=== PATIENT | male | born 1980 | race Caucasian/White ===

== ENCOUNTER 2017-12-21 17:01 | Emergency (ER) | payer SELFPAY ==
[2017-12-21 17:02] VITALS: BP 124/92; PULSE 101; RESP 16; TEMP 37; O2SAT 100; BMI 26.9
--- NOTE | 2017-12-21 17:44 | ED.VISSUMM ---
- ER Visit Summary Date of Service: 12/21/17 Chief Complaint: [] Left foot plantar nail puncture wound yesterday clean nail History of Present Illness: The patient is a 37 M [] was basically building something a very clean nail he just used he stepped on it with the boot went through the boot into the foot he believes it may have actually tented the dorsal skin did not go through the dorsal skin he presents complaining of persistent pain, he has no past history history of diabetes or any medical problems on no chronic meds his chief complaint is the pain Physical Examination: [] Head neck chest unremarkable the left foot there is a puncture wound to the plantar surface, there is no redness warmth or signs of infection fluctuance it appears to be more mid second third metatarsal level again no fluctuance crepitus his foot function is normal skin is intact no signs of infection strong dorsalis pedis pulse no lymphangitic streaking ankle normal Test Results: [] Emergency Department Course and Treatment: [] X point in the concept of I&D and coring out the plantar puncture, to treat potential infection, he understood that, and he declined that he was started on oral Cipro [place] for pain x-ray of the foot, will update tetanus as needed X-ray per radiology shows nothing acute of explained again all the above the patient at this time he was started on antibiotics, close outpatient with orthopedics crutfelicity Molina for pain and return for change in symptoms Treatment Plan: [] Disposition: [] Home stable Impression: [] Plantar puncture wound left foot related to nail This note was generated with [employer] dictation software. It may contain incorrect words, spelling, and punctuation that were not noted in review of the chart prior to signing ED Disposition - Plan for ED Patient: Chief Complaint: Lower Extremity Injury Referrals: Care Physician,No Primary [Primary Care Provider] -
[2017-12-21] MEDS: Ciprofloxacin 250 MG Tablet 500 MG PO (18:08)
[2017-12-21] MEDS: HYDROcodone Bitartrate/Apap 5/325 Tablet PO (18:08)
--- NOTE | 2017-12-21 18:29 | ED.DEP ---
ED Disposition - Plan for ED Patient: Chief Complaint: Lower Extremity Injury Instructions: ED Wound Puncture Foot Prescriptions: Hydrocodone/Acetaminophen [[place] 5-325 Tablet] 1 - 2 ea PO 4X/DAY PRN PRN 3 Days #12 tab PRN Reason: Pain Ciprofloxacin [Cipro] 500 mg PO BID #20 tab Referrals: Care Physician,No Primary [Primary Care Provider] - Justus Rueda MD [STAFF PHYSICIAN] -
[2017-12-21 18:38] VITALS: BP 168/88; PULSE 72; RESP 18; O2SAT 95
== END 2017-12-21 18:38 | disposition home or self-care (01) ==
LOC: ED 18:25
PROVIDERS: Emergency Provider Emergency Medicine
DX: S91.332A Puncture wound without foreign body, left foot, initial encounter (principal); W45.0XXA Nail entering through skin, initial encounter; Y93.9 Activity, unspecified; Y92.9 Unspecified place or not applicable
CPT/HCPCS: 73630; 99284

== ENCOUNTER 2018-02-12 16:54 | Emergency (ER) | payer SELFPAY ==
[2018-02-12 16:55] VITALS: BP 148/97; PULSE 89; RESP 18; TEMP 36.5; O2SAT 97; BMI 26.1
--- NOTE | 2018-02-12 17:38 | ED.VISSUMM ---
- ER Visit Summary Date of Service: 02/12/18 Chief Complaint: Low back pain History of Present Illness: The patient is a 37 M only past medical history for kidney stones. No prior surgeries. No back history. Patient states he was playing with his 2 large dogs on Monday. He twisted and injured his lower back. Complaining of pain. No radiation to his legs. No bowel or bladder incontinence. No other trauma. No fever. He is on no blood thinners. He denies any abdominal pain. He denies any weakness or numbness to his lower extremities. Physical Examination: Well-appearing young male. Vital signs are stable afebrile. HEENT exam unremarkable. Neck nontender. Lungs clear to auscultation. Heart regular rhythm no murmur. Abdomen soft and nontender. Normal bowel sounds no peritoneal signs. Patient is moving all 4 extremities. They are all neurovascular intact. 5 out of 5 manager voice strength. 5 out of 5 dorsi plantar flexion. Normal sensation in both lower extremities. Negative cauda equina. Negative saddle anesthesia. Normal medial thigh sensation. Normal range of motion of both upper and lower extremities. Negative straight leg raise to both lower extremities. back tender fourdrinier on his. Lumbar soft tissues. The thoracic and cervical spines are nontender. No redness or warmth. No signs of trauma. Neurologic exam normal. Again no cauda equina or saddle anesthesia. No weakness or numbness to the lower extremities. Test Results: None Emergency Department Course and Treatment: History and exam are consistent with myofascial strain and paralumbar muscle spasm. Treatment Plan: I am Toradol p.o. Valium here. Prescription for Valium No. 10 no refill. Also Motrin for pain. Hot shower. Warm bath. Massage. Return if worse. Disposition: Discharge Impression: Acute lumbar strain with paralumbar muscle spasm This note was generated with [employer] dictation software. It may contain incorrect words, spelling, and punctuation that were not noted in review of the chart prior to signing ED Disposition - Plan for ED Patient: Chief Complaint: Back Referrals: Care Physician,No Primary [Primary Care Provider] -
--- NOTE | 2018-02-12 17:41 | ED.DCSUM_ITS ---
- ER Visit Summary Date of Service: 02/12/18 Chief Complaint: Low back pain History of Present Illness: The patient is a 37 M only past medical history for kidney stones. No prior surgeries. No back history. Patient states he was playing with his 2 large dogs on Monday. He twisted and injured his lower back. Complaining of pain. No radiation to his legs. No bowel or bladder incontinence. No other trauma. No fever. He is on no blood thinners. He denies any abdominal pain. He denies any weakness or numbness to his lower extremities. Physical Examination: Well-appearing young male. Vital signs are stable afebrile. HEENT exam unremarkable. Neck nontender. Lungs clear to auscultation. Heart regular rhythm no murmur. Abdomen soft and nontender. Normal bowel sounds no peritoneal signs. Patient is moving all 4 extremities. They are all neurovascular intact. 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 5 out of 5 dorsi plantar flexion. Normal sensation in both lower extremities. Negative cauda equina. Negative saddle anesthesia. Normal medial thigh sensation. Normal r galindo of motion of both upper and lower extremities. Negative straight leg raise to both lower extremities. cigar wrapper tender automatic on his. Lumbar soft tissues. The thoracic and cervical spines are nontender. No redness or warmth. No signs of trauma. Neurologic exam normal. Again no cauda equina or saddle anesthesia. No weakness or numbness to the lower extremities. Test Results: None Emergency Department Course and Treatment: History and exam are consistent with myofascial strain and paralumbar muscle spasm. Treatment Plan: I am Toradol p.o. Valium here. Prescription for Valium No. 10 no refill. Also Motrin for pain. Hot shower. Warm bath. Massage. Return if worse. Disposition: Discharge Impression: Acute lumbar strain with paralumbar muscle spasm This note was generated with [employer] dictation software. It may contain incorrect words, spelling, and punctuation that were not noted in review of the chart prior to signing ED Disposition - Plan for ED Patient: Chief Complaint: Back Referrals: Care Physician,No Primary [Primary Care Provider] -
--- NOTE | 2018-02-12 17:41 | ED.DEP ---
ED Disposition - Plan for ED Patient: Disposition: Home or Assisted Living Chief Complaint: Back Instructions: ED Sprain Strain Lumbar Prescriptions: Diazepam [Valium] 10 mg PO Q8H PRN PRN #10 tab PRN Reason: Muscle Spasm Referrals: Bunny Chavez MD [STAFF PHYSICIAN] - 1 Week if not improving Additional Instructions: Valium for muscle spasms. Motrin for pain. Hot shower, warm bath and massage to relax back muscles. Return if worse or follow-up with local primary care physician if not improving.
[2018-02-12] MEDS: diazePAM 5 MG Tablet 10 MG PO (18:03)
[2018-02-12] MEDS: Ketorolac 60 MG/2 ML Vial IM (18:03)
[2018-02-12 18:28] VITALS: RESP 18; O2SAT 98
== END 2018-02-12 18:29 | disposition home or self-care (01) ==
LOC: ED 17:47
PROVIDERS: Emergency Provider Emergency Medicine
DX: S39.012A Strain of muscle, fascia and tendon of lower back, initial encounter (principal); M62.830 Muscle spasm of back; X50.1XXA Overexertion from prolonged static or awkward postures, initial encounter; Y93.9 Activity, unspecified; Y92.9 Unspecified place or not applicable; Z87.442 Personal history of urinary calculi; Z72.0 Tobacco use
CPT/HCPCS: 96372; 99283

== ENCOUNTER 2018-02-14 16:11 | Emergency (ER) | payer SELFPAY ==
[2018-02-14 16:12] VITALS: BP 134/72; PULSE 91; RESP 18; TEMP 36.4; O2SAT 99; BMI 26.1
--- NOTE | 2018-02-14 17:00 | RAD_ITS ---
STUDY: X-RAY - LUMBAR SPINE REASON FOR EXAM: Male, 37 years old. Back pain after traumatic injury. TECHNIQUE: 3 view(s) of the lumbar spine were obtained. COMPARISON: None FINDINGS: Normal lumbar lordosis. There is no substantial scoliosis. There is a normal alignment of the vertebrae. Normal vertebral bodies and endplates. Normal disc space heights. There is no demonstrated fracture. There is no demonstrated spondylolysis of the pars interarticulares. The soft tissue structures are unremarkable. RAD/Lumbar Spine 2 or 3 Views IMPRESSION: Normal x-ray examination of the lumbar spine. Electronically Signed: Amie Gracia MD at 17:52 EDT , Service support ,
[2018-02-14] MEDS: Orphenadrine 60 MG/2 ML Ampul IM (17:20)
[2018-02-14] MEDS: Ketorolac 30 MG/ML Syringe IM (17:20)
--- NOTE | 2018-02-14 18:17 | ED.VISSUMM ---
- ER Visit Summary Date of Service: 02/14/18 Chief Complaint: Back pain History of Present Illness: The patient is a 37 M presenting for evaluation secondary to back pain. Patient reports that he suffered somewhat of a back injury about 5 days ago when he was rolling on the ground with his dogs. Patient states that it is a continuous pain across his bilateral lower back. Pain is worse with movement does not radiate and has not been associated with any sort of numbness weakness bowel or bladder incontinence or fevers. Patient denies any history of spinal injections or recent surgeries. Patient states that he was seen in the emergency department was given Toradol which seemed to help but then he was sent home with a course of Valium which is not helping him. Patient has a very physical job, and states that he has been unable to perform his tasks at work because he is still having pain. Physical Examination: Vitals: Within normal limits General: Well-nourished well-developed no acute distress Head: Normocephalic atraumatic ENT: Moist mucous membranes Neck: Supple no JVD Cardiovascular: Heart regular rate and rhythm no murmurs Respiratory: Respirations nondistressed, lung sounds clear to auscultation bilaterally Abdominal: Soft, nontender, nondistended, normal bowel sounds, no evidence of abdominal masses or pulsatile mass Back: Normal to inspection, no midline tenderness to palpation, bilateral paraspinal lumbar tenderness noted, straight leg raise negative bilaterally Extremities: Nontender, nonedematous, 2+ radial and PT pulses bilaterally symmetric Skin: Normal color no rash Neuro: 5/5 strength hip flexion, knee flexion, knee extension, dorsiflexion, plantarflexion, EHL. Sensation intact over all dermatomes of the lower extremities bilaterally, 2+ patellar and Achilles reflexes bilaterally symmetric, negative clonus bilaterally Test Results: Lumbar x-ray is negative per radiology Emergency Department Course and Treatment: Patient presented for evaluation secondary to back pain. Physical exam seems like this is mostly muscular back pain, but the patient is a bounce backs radiographs were obtained and were found to be negative. He has no red flag signs or symptoms and no concerns for cauda equina or spinal cord impingement or dural abscess or hematoma or other serious etiology that would require further workup. Patient was treated with Toradol and Norflex. At this point I still believe the patient to have a lumbar strain. He was recommended on aggressive stretching exercises. I will give the patient a Medrol pack, I will change his muscle relaxant to Flexeril, will give the patient a couple days off work and have him follow-up with his primary care physician. Disposition: Discharge Impression: 1. Lumbosacral strain This note was generated with [employer] dictation software. It may contain incorrect words, spelling, and punctuation that were not noted in review of the chart prior to signing ED Disposition - Plan for ED Patient: Disposition: Home or Assisted Living Chief Complaint: Back Diagnosis: Lumbosacral strain Instructions: ED Sprain Strain Lumbar Prescriptions: Cyclobenzaprine [Flexeril] 10 mg PO TID PRN #20 tab PRN Reason: Muscle Spasm Referrals: Care Physician,No Primary [Primary Care Provider] -
== END 2018-02-14 18:42 | disposition home or self-care (01) ==
PROVIDERS: Emergency Provider Emergency Medicine
DX: S39.012A Strain of muscle, fascia and tendon of lower back, initial encounter (principal); X58.XXXA Exposure to other specified factors, initial encounter; Y93.9 Activity, unspecified; Y92.9 Unspecified place or not applicable; Z72.0 Tobacco use
CPT/HCPCS: 72100; 96372; 99283

== ENCOUNTER 2018-06-27 09:43 | Emergency (ER) | payer SELFPAY ==
[2018-06-27 09:44] VITALS: BP 164/86; PULSE 81; RESP 18; TEMP 37.6; O2SAT 100; BMI 24.7
--- NOTE | 2018-06-27 09:53 | EKG12_ITS ---
Test Reason : DIZZINESS Blood Pressure : / mmHG Vent. Rate : 068 BPM Atrial Rate : 068 BPM P-R Int : 148 ms QRS Dur : 098 ms QT Int : 388 ms P-R-T Axes : 053 029 049 degrees QTc Int : 412 ms Normal sinus rhythm Normal ECG Confirmed by SHARYN FORREST MD ([id number]), general expeditor ELAINA VANG ([id number]) on 07/03/2018 8:51:49 AM Referred By: YANA Confirmed By:SHARYN FORREST MD
--- NOTE | 2018-06-27 09:55 | ED.VISSUMM ---
- ER Visit Summary Date of Service: 06/27/18 Chief Complaint: Dizzy, jittery History of Present Illness: The patient is a 38 M presents to the emergency department with lightheadedness and the sensation of palpitations. Patient states the symptoms began today. He was at work. He states that she had breakfast. He states that he felt very tremulous like his heart was racing. Patient has recently stopped smoking 2 days ago. He denies headache or vision change. He denies any fevers or chills. He denies any cough. He had no neck pain. He had no nausea or vomiting. He states I just did not feel like myself. He is never experienced anything like this before. Physical Examination: Vital signs reviewed General: Well-nourished, well-developed Head: Normocephalic, atraumatic Eyes: Pupils equal and reactive, extraocular muscles intact Neck, supple, no lymphadenopathy Heart: Regular rate and rhythm Respiratory: No distress, clear bilaterally Abdomen: Soft, nontender, nondistended, no peritoneal signs Back: Nontender Extremities: Nontender, no edema, no cords Skin: Normal color no rash Neuro: Alert and oriented, no focal or lateralizing deficits Test Results: [] Emergency Department Course and Treatment: The patient is not febrile tachycardic. EKG was done on patient arrival. Was sinus rhythm. There is no acute ischemic change. There is normal axis and intervals. Patient was given IV fluids and Ativan. Screening labs obtained. These are unremarkable. My suspicion is that this is likely from nicotine withdrawal. At this time, I do feel the patient is safe for outpatient therapy. He was counseled on concerning symptoms and reasons to return. He will be discharged home. Treatment Plan: [] Disposition: Discharge Impression: 1. Palpitations This note was generated with [employer] dictation software. It may contain incorrect words, spelling, and punctuation that were not noted in review of the chart prior to signing ED Disposition - Plan for ED Patient: Instructions: ED Dehydration Referrals: Care Physician,No Primary [Primary Care Provider] -
--- NOTE | 2018-06-27 09:57 | NURSING ---
NO OLD EKGS
[2018-06-27 10:09] LABS: Absolute Lymphocyte Count 2.02 X10^3/ul (0.83-4.51); Absolute Neutrophil Count 9.3 X10^3/uL (2.0-7.7); Basophil# 0.09 X10^3/uL; Basophil% 0.7 % (0-1); Eosinophil# 0.32 X10^3/uL; Eosinophils% 2.5 % (0-5); Hematocrit 48.6 % (40-54); Hemoglobin 16.4 g/dl (13.0-16.5); Lymphocyte # 2.02 X10^3/ul (4.0); Mean Corp Hgb Conc 33.7 g/gl (32-36); Mean Corpuscular Hgb 31.7 pg (27.0-32.0); Mean Corpuscular Volume 93.8 fL (80-94); Mean Platelet Vol. 11.5 fl (6.2-12.0); Monocyte# 0.89 X10^3/uL; Neutrophil # 9.31 X10^3/uL (2.7-7.7); Neutrophil % 73.6 % (47-70); Platelet Count 282 K/mm3 (150-450); RBC Distribution Width CV 12.4 % (11.6-14.6); RBC Distribution Width SD 42.2 fl (35.1-43.9); Red Blood Count 5.18 M/mm3 (4.6-6.2); White Blood Count 12.7 K/mm3 (4.4-11.0)
[2018-06-27 10:10] LABS: POSITIVE COUNT NO; POSITIVE DIFFERENTIAL NO; POSITIVE MORPHOLOGY NO
[2018-06-27 10:38] LABS: ALB/GLOB Ratio 1.2 RATIO (0.9-2.4); AST(SGOT) 19 U/L (15-37); Alanine Aminotransfer ALT/SGPT 29 U/L (16-61); Albumin, Serum 4.3 g/dL (3.2-5.0); Alkaline Phosphatase 82 U/L (45-117); Anion Gap 8 (5-15); BUN 11 mg/dL (7-18); BUN/Creat Ratio 10.5 RATIO (10-20); Calcium,Total 8.5 mg/dL (8.5-10.1); Chloride 105 mmol/L (98-107); Creatinine, Serum 1.05 mg/dL (0.70-1.30); EST Glomerular Filtration Rate 84 mL/min (>60); Est Glom Filt Rate - Afr Amer 101 mL/min (>60); Estimated Creatinine Clearance 94.45 ml/min; Globulin 3.5 g/dL (2.2-4.2); Glucose 93 mg/dL (74-106); Potassium 3.8 mmol/L (3.5-5.1); Protein, Total 7.8 g/dL (6.4-8.2); Sodium Level 139 mmol/L (136-145)
[2018-06-27] MEDS: 0.9% Normal Saline 1,000 ML 1000 ML IV (10:47)
[2018-06-27] MEDS: LORazepam 2 MG/ML Syringe 1 MG IV (10:47)
[2018-06-27 10:51] VITALS: BP 151/111; PULSE 70; RESP 18; O2SAT 99
[2018-06-27 12:13] VITALS: BP 128/60; PULSE 90; RESP 18; O2SAT 98
== END 2018-06-27 12:16 | disposition home or self-care (01) ==
PROVIDERS: Emergency Provider Emergency Medicine
DX: R00.2 Palpitations (principal); F17.203 Nicotine dependence unspecified, with withdrawal
CPT/HCPCS: 80053; 85025; 93005; 96361; 96374; 99284; J7030

== ENCOUNTER 2018-07-02 11:08 | Emergency (ER) | payer SELFPAY ==
[2018-07-02 11:10] VITALS: BP 137/89; PULSE 83; RESP 12; TEMP 36.8; BMI 23.6
--- NOTE | 2018-07-02 11:36 | RAD_ITS ---
STUDY: X-RAY - LUMBAR SPINE REASON FOR EXAM: Male, 38 years old. Pain following a recent fall. TECHNIQUE: 3 view(s) of the lumbar spine were obtained. COMPARISON: None FINDINGS: Normal lumbar lordosis. There is no substantial scoliosis. There is a normal alignment of the vertebrae. Normal vertebral bodies and endplates. Mild to moderate degree of disc space narrowing at the L5-S1 level. The soft tissue structures are unremarkable. RAD/Lumbar Spine 2 or 3 Views IMPRESSION: Mild to moderate degree of disc space narrowing at the L5-S1 level. Electronically Signed: Skyler López, at 12:38 EDT , Service support ,
--- NOTE | 2018-07-02 12:15 | ED.VISSUMM ---
- ER Visit Summary Date of Service: 07/02/18 Chief Complaint: [Back injury] History of Present Illness: The patient is a 38 M [presents to the emergency department complaint of injury to his back that occurred 2 days ago. Patient states that he was cutting up trees and he slipped in the mud landing on a log that he had cut. Patient complaining of pain with movement and bending. Patient rates pain as a 7 out of 10. He denies any pain rating down his legs. He denies any change in bowel or bladder function. Denies any paresthesias to the lower extremities. He denies any hematuria. He denies any urinary symptoms. Denies any dyspnea.] Physical Examination: [HEENT-PERRLA, EOMI. Cranial nerves II through XII grossly intact. TMs clear. Mucous membranes moist. No adenopathy. Cardiovascular-regular rate and rhythm without murmur or ectopy Lungs-clear to auscultation, chest wall stable without crepitus or subcu emphysema Abdomen-normoactive bowel sounds, soft, nontender, no rebound or rigidity, no peritoneal signs. Back exam-patient has tenderness to palpation over the mid lumbar spine reproduces pain. There is no ecchymosis or bruising noted no bony step-offs noted. Negative straight leg raises. Deep tendon reflexes are plus 2 out of 4 bilaterally at the patella and Achilles. Patient has normal L5 extension. Extremities-intact ?4, normal range of motion, normal pulses, atraumatic] Test Results: [X-rays of the lumbar spine were negative for fracture. Patient had some mild disc space narrowing between L5 and S1.] Emergency Department Course and Treatment: [Patient was given a Ellery in the emergency department.] Treatment Plan: [Patient will be given a prescription for Naprosyn, Ellery, and Flexeril.] Disposition: [Discharged home in stable condition. Patient advised to follow-up with primary care physician communications professor for no doc within next 5-7 days. Patient given work restrictions] Impression: [Contusion low back.] This note was generated with [employer] dictation software. It may contain incorrect words, spelling, and punctuation that were not noted in review of the chart prior to signing ED Disposition - Plan for ED Patient: Referrals: Care Physician,No Primary [Primary Care Provider] -
--- NOTE | 2018-07-02 13:39 | ED.DEP ---
ED Disposition - Plan for ED Patient: Instructions: ED Contusion Back Prescriptions: Hydrocodone Bitart/Apap 5-325 [[place] 5MG-325MG] 1 tab PO Q4H PRN PRN 2 Days #10 tab PRN Reason: Pain Naproxen [Naprosyn] 500 mg PO BID PRN #20 tab Cyclobenzaprine [Flexeril] 10 mg PO TID PRN #20 tab PRN Reason: Muscle Spasm Referrals: Care Physician,No Primary [Primary Care Provider] - Randall Lyons MD [STAFF PHYSICIAN] - 3-5 Days
[2018-07-02] MEDS: HYDROcodone Bitartrate/Apap 5/325 Tablet PO (14:03)
--- NOTE | 2018-07-02 14:04 | ED.RN ---
DISCHARGE INSTRUCTIONS GIVEN TO AND REVIEWED WITH PATIENT, PATIENT DENIES QUESTIONS OR CONCERNS AND VOICES UNDERSTANDING OF DISCHARGE INSTRUCTIONS. PT AMBULATES OUT OF ROOM WITHOUT DIFFICULTY.
== END 2018-07-02 14:05 | disposition home or self-care (01) ==
PROVIDERS: Emergency Provider Emergency Medicine
DX: S30.0XXA Contusion of lower back and pelvis, initial encounter (principal); W01.0XXA Fall on same level from slipping, tripping and stumbling without subsequent striking against object, initial encounter; Y93.H9 Activity, other involving exterior property and land maintenance, building and construction; Y92.007 Garden or yard of unspecified non-institutional (private) residence as the place of occurrence of the external cause; Y99.8 Other external cause status; Z87.442 Personal history of urinary calculi; Z87.891 Personal history of nicotine dependence
CPT/HCPCS: 72100; 99282

== ENCOUNTER 2018-11-20 12:09 | Emergency (ER) | payer SELFPAY ==
[2018-11-20 12:09] VITALS: BP 119/65; PULSE 83; RESP 16; TEMP 36.6; O2SAT 96; BMI 22.4
--- NOTE | 2018-11-20 12:54 | ED.VISSUMM ---
- ER Visit Summary Date of Service: 11/20/18 Chief Complaint: Back pain History of Present Illness: The patient is a 38 M who presents with back pain that has been getting worse over the past 3 days. Patient states she was horsing around with his dog when the pain began. Patient states the pain is constant. Patient states the pain is over the lower lumbar area. Patient describes the pain as throbbing. Patient states the pain is worse with bending and lifting. Patient denies any radiation of the pain. Patient denies any bowel or bladder changes. Patient denies any saddle anesthesia. Physical Examination: Vital signs are stable. Patient is afebrile. Patient is in no acute distress. Musculoskeletal exam reveals tenderness over the left lumbar paraspinal muscles. There is some mild spasm of the muscles. There is no midline tenderness. There is no bony crepitance or step-off. Range of motion was limited in all motions of the lumbar spine secondary to pain. Strength is 5/5 bilateral and lower extremities. There are no sensory deficits noted. Deep tendon reflexes are 2/4 bilaterally in the lower extremities. Emergency Department Course and Treatment: Patient was given prescription for meloxicam. Patient was instructed to avoid any heavy lifting. Patient was instructed to follow-up with his primary care physician in 5 to 7 days. Patient understood and was agreeable with the plan. All questions were answered. Disposition: Discharge home Impression: Lumbosacral strain This note was generated with [employer] dictation software. It may contain incorrect words, spelling, and punctuation that were not noted in review of the chart prior to signing ED Disposition - Plan for ED Patient: Disposition: Home or Assisted Living Diagnosis: Acute lumbosacral myofascial strain Instructions: Back Sprain/Strain Prescriptions: Meloxicam 15 mg PO DAILY PRN PRN #20 tab PRN Reason: Pain Prescription Printed Referrals: Care Physician,No Primary [Primary Care Provider] - Jessica Menendez MD [STAFF PHYSICIAN] - 5-7 Days
== END 2018-11-20 13:13 | disposition home or self-care (01) ==
LOC: ED 13:01
PROVIDERS: Emergency Provider Emergency Medicine
DX: S39.012A Strain of muscle, fascia and tendon of lower back, initial encounter (principal); H53.8 Other visual disturbances; J34.89 Other specified disorders of nose and nasal sinuses; R51 Headache; X58.XXXA Exposure to other specified factors, initial encounter; Y93.9 Activity, unspecified; Y92.9 Unspecified place or not applicable; Z87.442 Personal history of urinary calculi; Z87.891 Personal history of nicotine dependence
CPT/HCPCS: 99282

== ENCOUNTER 2020-01-18 14:28 | Emergency (ER) | payer SELFPAY ==
[2020-01-18 14:29] VITALS: BP 158/75; PULSE 97; RESP 18; TEMP 36.6; O2SAT 99; BMI 27.4
[2020-01-18] MEDS: oxyCODONE 5 MG Tablet 10 MG PO (14:48)
--- NOTE | 2020-01-18 14:50 | RAD_ITS ---
STUDY: X-RAY - LEFT RADIUS AND ULNA REASON FOR EXAM: Male, 39 years old. LACERATION MID FA FROM MALLET/HAMMER TECHNIQUE: 2 view(s) of the forearm. COMPARISON: None. FINDINGS: There is no demonstrated soft tissue swelling. Normal visualized radius. Normal visualized ulna. RAD/Forearm 2 Views IMPRESSION: No demonstrated fracture. Electronically Signed: Orville Dickinson MD ([place]oks) at 15:08 EDT , Service support ,
--- NOTE | 2020-01-18 15:09 | ED.VISSUMM ---
- ER Visit Summary Date of Service: 01/18/20 Chief Complaint: Left forearm injury History of Present Illness: The patient is a [address] Varma. Patient is ambidextrous, but writes with his right hand. He works doing [employer]. He reports that today he was using a 5 pound sledgehammer to try to break loose a frozen break. The hammer broke and he estimates 2 cm of this entered his left arm. It filled out when he hit it with his other hand. He reports that he has paresthesias in his fingers. He has an aching pain is 10 of 10 in severity. Is worsened by movement relieved by rest. Tetanus is up-to-date. Physical Examination: Vitals: Stable. Afebrile. General: Well-nourished and well-developed. Head: Normocephalic atraumatic. Neck: Supple, no lymphadenopathy. No JVD. Nontender. Cardiovascular: Regular rate and rhythm. No murmurs. Respiratory: No respiratory distress. Clear to auscultation bilaterally. Abdominal: Soft, nontender, nondistended, normal bowel sounds. No guarding, rebound, or peritoneal signs. Back: Nontender. Extremities: Y-shaped 1.5 cm laceration over the midportion of his posterior left forearm. He has normal sensation light touch distally and less than 2-second cap refill. There is moderate tenderness to palpation. The compartments are soft. He has no pain with passive range of motion of his fingers. Skin: Normal color, no rash. Neurologic: Alert and oriented ?3. Cranial nerves II through XII are intact. Normal strength and sensation. Psych: Normal affect. Test Results: X-ray shows no fracture. Emergency Department Course and Treatment: With the nature of this puncture wound I do not think that closing it is in his best interest. He was treated with oxycodone and Keflex. He was placed in a splint. Treatment Plan: Patient will be discharged instructions to follow-up with Dr. Justus Rueda in 2 days for a wound check. He is given prescription for Percocet and Keflex. Return to the emergency department for any worsening symptoms. Disposition: To home in improved and stable condition. Impression: 1. Laceration left forearm, 1.5 cm, not repaired. 2. Crush injury left forearm. 3. Ortho-Glass volar splint, fabricated. This note was generated with [employer] dictation software. It may contain incorrect words, spelling, and punctuation that were not noted in review of the chart prior to signing ED Disposition - Plan for ED Patient: Instructions: Wound Care Prescriptions: Cephalexin [Keflex] 500 mg PO Q6 #28 capsule Oxycodone HCl/Acetaminophen [Percocet 5/325] 1 tablet PO Q6H PRN PRN 3 Days #12 tablet PRN Reason: Pain Referrals: Justus Rueda MD [STAFF PHYSICIAN] - 2 Days for wound check
[2020-01-18] MEDS: Cephalexin 250 MG Capsule 500 MG PO (15:41)
== END 2020-01-18 16:31 | disposition home or self-care (01) ==
PROVIDERS: Emergency Provider Emergency Medicine
DX: S57.82XA Crushing injury of left forearm, initial encounter (principal); S51.812A Laceration without foreign body of left forearm, initial encounter; R19.7 Diarrhea, unspecified; W23.0XXA Caught, crushed, jammed, or pinched between moving objects, initial encounter; Y93.9 Activity, unspecified; Y92.9 Unspecified place or not applicable; Z72.0 Tobacco use
CPT/HCPCS: 29125; 73090; 99283

== ENCOUNTER 2020-04-13 23:07 | Emergency (ER) | payer SELFPAY ==
[2020-04-13 23:08] VITALS: BP 165/113; PULSE 85; RESP 16; TEMP 35.3; O2SAT 98; BMI 24.7
--- NOTE | 2020-04-13 23:18 | ED.VIS.GEN ---
History of Present Illness Chief Complaint: Upper Extremity Injury Informant: Patient Narrative: 39-year-old male states that earlier today he had his lateral posterior left elbow on an object in his garage. He states he has developed tingling of the middle ring and little finger of the left hand. He notes painful range of motion. Past Medical History - Allergies and Home Meds Allergies/Adverse Reactions: Allergies Penicillins Allergy (Verified 04/13/20 23:11) Angioedema Primary Care Physician: Care Physician,No Primary [Primary Care Provider] - Past Medical History: None Surgical History: no surgical history Lives: Spouse/ Significant Other Smoking Status: Current every day smoker - Family History Maternal Family History: Reports: No pertinent history Paternal Family History: Reports: No pertinent history Review of Systems General: Denies: Chills, Fever, Sweats Eyes: Denies: Visual changes - bilaterally, Diplopia ENT: Denies: Rhinorrhea, Sore throat Cardiovascular: Denies: Chest pain, Palpitations Respiratory: Denies: Dyspnea, Cough, Dyspnea on exertion Gastrointestinal: Denies: Abdominal pain, Nausea, Vomiting, Diarrhea, Melena, Hematochezia Genitourinary: Denies: Dysuria, Hematuria, Frequency Musculoskeletal: Reports: Extremity Pain. Denies: Back pain Skin: Denies: Rash, Wounds Neurological: Reports: Parasthesia. Denies: Headache, Weakness, Numbness Physical Exam Vital Signs/Narrative: Vital Signs Temp Pulse Resp BP Pulse Ox 04/13/20 23:08 95.6 F L 85 16 165/113 H 98 Inital Vital Signs reviewed: Yes General: Well nourished, Well developed, No Acute Distress Head: Normocephalic, Atraumatic Eyes: Perrl, EOMI ENT: Moist mucous membranes, No rhinorrhea Neck: Supple, Nontender Cardiovascular: Regular rate, Regular rhythm, No murmurs Respiratory: No distress, CTA bilaterally, Chest nontender Abdomen: Soft, Nontender, Nondistended, Normal bowel sounds Back: Nontender, Normal Inspection Extremities: Nontender, No edema Skin: Normal color, No rash Neurological: Alert, Oriented x3, Cranial nerves II-XII grossly intact, Normal Strength, Normal Sensation, - - Sensation is preserved. He does note paresthesias of the aforementioned fingers. No loss of function. Tenderness over the lateral posterior elbow. Psychological: Normal affect, Normal Mood Diagnostic/Tx/Re-eval Clinical Impression(s) from Imaging Studies Elbow X-Ray 04/13/20 23:20 IMPRESSION: Normal x-ray examination of the elbow. Electronically Signed: Jakob Brown DO at 23:43 EST Tel [phone], Service support , - Medical Decision Making My interpretation of the three-view elbow x-rays are negative for fracture. Patient most likely has a mild neuropraxia from trauma. Most likely also has a contusion. Recommend supportive care follow-up if not improving ED Disposition - Plan for ED Patient: Disposition: Home or Assisted Living Diagnosis: Left elbow contusion, Neuropraxia of left ulnar nerve Instructions: ED Contusion, Elbow Referrals: Jessica Menendez MD [STAFF PHYSICIAN] - 1 Week if not improving
--- NOTE | 2020-04-13 23:20 | RAD_ITS ---
STUDY: X-RAY - LEFT ELBOW REASON FOR EXAM: Male, 39 years old. INJURED ELBOW BY HITTING IT ON METAL TABLE THIS MORNING. PAIN POSTERIOR ELBOW DISTAL END OF HUMERUS TECHNIQUE: 3 view(s) of the elbow. COMPARISON: None. FINDINGS: Normal visualized humerus, radius and ulna. Normal radiocapitellar and ulnotrochlear articulations. The soft tissue structures are unremarkable. RAD/Elbow min 3 Views IMPRESSION: Normal x-ray examination of the elbow. Electronically Signed: Jakob Brown DO at 23:43 EST Tel [phone], Service support ,
[2020-04-13 23:23] VITALS: BP 169/113
[2020-04-14 00:24] VITALS: RESP 16
== END 2020-04-14 00:25 | disposition home or self-care (01) ==
PROVIDERS: Emergency Provider Emergency Medicine
DX: S50.02XA Contusion of left elbow, initial encounter (principal); S54.02XA Injury of ulnar nerve at forearm level, left arm, initial encounter; W22.8XXA Striking against or struck by other objects, initial encounter; Y93.9 Activity, unspecified; Y92.9 Unspecified place or not applicable; F17.200 Nicotine dependence, unspecified, uncomplicated
CPT/HCPCS: 73080; 99282; J7030; A4216

== ENCOUNTER 2020-05-02 19:29 | Emergency (ER) | payer SELFPAY ==
[2020-05-02 19:30] VITALS: BP 161/103; PULSE 90; RESP 17; TEMP 36.5; O2SAT 100; BMI 24.5
--- NOTE | 2020-05-02 19:42 | ED.VISSUMM ---
- ER Visit Summary Date of Service: 05/02/20 Chief Complaint: Upper back pain History of Present Illness: The patient is a 40 M with no primary care physician. He reports that 3 hours ago he was playing with his kids and hit his upper back on the [place] door in his house. He fell to the ground. He denies any loss of consciousness. No other injuries or pain. Patient reports he has left-sided upper back pain is a throbbing pain is 10 of 10 severity. He has tried ice, heat, ibuprofen without relief. States it is worsened by movement. There is no ration to his legs. No numbness or weakness in his legs. No problems with his bowels or his bladder. No groin numbness. Patient denies red flags. Physical Examination: Vitals: Stable. Afebrile. General: A&O x 3. NAD. Cardiovascular exam: Regular rate and rhythm, no murmur, rub or gallop. Respiratory exam: Clear to auscultation bilaterally. No wheezes or stridor. No pain with anterior posterior lateral compression of his chest. Abdominal exam: Soft, nontender, nondistended, normal bowel sounds. No peritoneal signs. Back: No vertebral tenderness. He has mild tenderness palpation to the paraspinous muscular just medial to his left scapula. Negative straight leg bilaterally. 5/5 DF, PF, EHL bilaterally. Normal sensation to light touch throughout. Extremity: No clubbing, cyanosis, or edema. Emergency Department Course and Treatment: Patient denies shortness of breath. He denies any pain with deep breaths. He refused rib x-rays. An [facility] report was obtained which shows 2 prescriptions for opiates in the past year. He was given one [place] here. Treatment Plan: Patient will be discharged prescription for 6 [place]. Instructed on symptomatic care otherwise. [facility] 5 days if not improving. Return to the emergency department for any worsening symptoms. Disposition: To home in improved and stable condition. Impression: 1. Upper back pain. This note was generated with [employer]rystals[employer] software. It may contain incorrect words, spelling, and punctuation that were not noted in review of the chart prior to signing ED Disposition - Plan for ED Patient: Instructions: ED Back Pain (Acute or Chronic) Prescriptions: Hydrocodone Bitart/Apap 5-325 [[place] 5MG-325MG] 1 tablet PO Q4H PRN PRN 2 Days #6 tablet PRN Reason: Pain Referrals: Jaylyn Ruth [NON-STAFF] - 3-5 Days if not improving
[2020-05-02] MEDS: HYDROcodone Bitartrate/Apap 5/325 Tablet PO (19:50)
== END 2020-05-02 20:04 | disposition home or self-care (01) ==
LOC: ED 20:00
PROVIDERS: Emergency Provider Emergency Medicine
DX: M54.9 Dorsalgia, unspecified (principal); R51.9 Headache, unspecified; W22.09XA Striking against other stationary object, initial encounter; Y93.9 Activity, unspecified; Y92.9 Unspecified place or not applicable; Z87.442 Personal history of urinary calculi
CPT/HCPCS: 99282

== ENCOUNTER 2020-05-06 17:37 | Emergency (ER) | payer SELFPAY ==
[2020-05-06 17:38] VITALS: BP 153/101; PULSE 85; RESP 14; TEMP 36; O2SAT 97; BMI 25.1
--- NOTE | 2020-05-06 17:55 | ED.DCSUM_ITS ---
- ER Visit Summary Date of Service: 05/06/20 Chief Complaint: [Back pain] History of Present Illness: The patient is a 40 M [presents to the emergency department complaint of back pain since an injury 5 days ago. Patient states that he was playing with his kids and they were having a Nerf war when his daug hter jumped into his arms and he fell backwards landing on the ground and hitting his back against endorse. Patient was seen in the emergency department and refused x-rays at that time. Patient's continuing to work but having to do a lot of lifting at work and still has pain in his back. He denies any pain rating down his legs. He denies any weakness in extremities. He denies paresthesias. He denies new injury. Been using [id number] naproxen. Patient states that he does not want anything narcotic porras for pain.] Physical Examination: [HEENT-PERRLA, EOMI. Cranial nerves II through XII grossly intact. TMs clear. Mucous membranes moist. No adenopathy. Cardiovascular-regular rate and rhythm without murmur or ectopy Lungs-clear to auscultation, chest wall stable without crepitus or subcu emphysema Abdomen-normoactive bowel sounds, soft, nontender, no rebound or rigidity, no peritoneal signs. Back exam-patient has diffuse tenderness over the lower thoracic and upper lumbar spine with paraspinal tenderness as well. There is no ecchymosis or bruising. No bony step-offs noted. Negative straight leg raises. Deep tendon reflexes are plus 2 out of 4 bilaterally at the patella and Achilles. Patient has normal 5 extension bilaterally. Extremities-intact ?4, normal range of motion, normal pulses, atraumatic Test Results: [I offered patient x-rays of his back however he is refusing. Patient states that he does not think he broke anything and feels like this is more muscular.] Emergency Department Course and Treatment: [We will begin a prescription for naproxen and Flexeril. 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 It may contain incorrect words, spelling, and punctuation that were not noted in review of the chart prior to signing ED Disposition - Plan for ED Patient: Referrals: Care Physician,No Primary [Primary Care Provider] -
--- NOTE | 2020-05-06 17:57 | ED.DEP ---
ED Disposition - Plan for ED Patient: Instructions: ED Back Contusion Prescriptions: cycloBENZAPRine HCl [Flexeril] 10 mg PO TID PRN #20 tab PRN Reason: Muscle Spasm Prescription Printed Naproxen [Naprosyn] 500 mg PO BID PRN #20 tab Prescription Printed Referrals: Care Physician,No Primary [Primary Care Provider] - Randall Lyons MD [STAFF PHYSICIAN] - 5-7 Days
== END 2020-05-06 18:20 | disposition home or self-care (01) ==
LOC: ED 18:14
PROVIDERS: Emergency Provider Emergency Medicine
DX: S30.0XXA Contusion of lower back and pelvis, initial encounter (principal); W19.XXXA Unspecified fall, initial encounter; Y93.9 Activity, unspecified; Y92.9 Unspecified place or not applicable; Z87.442 Personal history of urinary calculi
CPT/HCPCS: 99282

== ENCOUNTER 2020-05-18 19:53 | Emergency (ER) | payer SELFPAY ==
[2020-05-18 19:54] VITALS: BP 160/101; PULSE 85; RESP 18; TEMP 36.1; O2SAT 99; BMI 23.6
--- NOTE | 2020-05-18 20:12 | ED.VIS.GEN ---
History of Present Illness Chief Complaint: Back Narrative: Patient is a 40-year-old male who presents with lower back pain. He has had several ER visits for lower back pain. He recently had a visit where he had been having a nerve gun with his daughter and he fell backward straight onto his back. He was given naproxen and Flexeril. He states this was helping his symptoms. He is now out of the muscle relaxant. He states he does not know if his lower back is still just stiff from his injury or if he may have a kidney stone. He has no urinary symptoms. His pain is worse with palpation or certain movements particularly bending over lifting things up. No abdominal pain. No urinary retention or fecal incontinence. No radiation of pain to the legs. No weakness or paresthesias. Past Medical History - Allergies and Home Meds Allergies/Adverse Reactions: Allergies Penicillins Allergy (Verified 05/18/20 20:21) Angioedema Primary Care Physician: Care Physician,No Primary [Primary Care Provider] - Past Medical History: None Surgical History: no surgical history Smoking Status: Former smoker - Family History Maternal Family History: Reports: No pertinent history Paternal Family History: Reports: No pertinent history Review of Systems All systems negative except as indicated General: Denies: Fever Eyes: Denies: Visual changes - bilaterally ENT: Denies: Bilateral ear pain Cardiovascular: Denies: Chest pain Respiratory: Denies: Dyspnea Gastrointestinal: Denies: Vomiting, Diarrhea Musculoskeletal: Reports: Back pain Skin: Denies: Rash Neurological: Denies: Weakness, Parasthesia, Numbness Hematologic: Denies: Easy bruising Allergy: Denies: Uticaria Physical Exam Vital Signs/Narrative: Vital Signs Temp Pulse Resp BP Pulse Ox 05/18/20 19:54 96.9 F L 85 18 160/101 H 99 Inital Vital Signs reviewed: Yes General: Well nourished Head: Normocephalic Eyes: EOMI ENT: Moist mucous membranes Neck: Supple Cardiovascular: Regular rate Respiratory: No distress Abdomen: Soft, Nontender Back: - - Patient does have bilateral paraspinal lumbar tenderness no midline pain Skin: Normal color Neurological: Alert, - - Normal strength and sensation of the lower extremities with 5 out of 5 dorsiflexion plantarflexion and EHL. Psychological: Normal affect Diagnostic/Tx/Re-eval - Medical Decision Making Patient's history and exam are consistent with a lumbosacral strain. He was given naproxen and Flexeril here. He was given prescriptions for the same. He was referred to a primary care provider. I discussed that his next step is likely physical therapy. He does understand return for new or worsening symptoms and was instructed on signs and symptoms to monitor for. Patient discharged. ED Disposition - Plan for ED Patient: Disposition: Home or Assisted Living Diagnosis: Lumbosacral strain Instructions: ED Back Sprain/Strain Prescriptions: cycloBENZAPRine HCl [Flexeril] 10 mg PO TID PRN #20 tab PRN Reason: Muscle Spasm Prescription Printed Naproxen [Naprosyn] 500 mg PO BID #20 tab Prescription Printed Referrals: Care Physician,No Primary [Primary Care Provider] - Chad Herrera MD [STAFF PHYSICIAN] -
[2020-05-18] MEDS: Naproxen 500 MG Tablet PO (20:23)
[2020-05-18] MEDS: cycloBENZAPRine HCl 10 MG Tablet PO (20:23)
== END 2020-05-18 20:33 | disposition home or self-care (01) ==
PROVIDERS: Emergency Provider Emergency Medicine
DX: S39.012A Strain of muscle, fascia and tendon of lower back, initial encounter (principal); W19.XXXA Unspecified fall, initial encounter; Y93.9 Activity, unspecified; Y92.9 Unspecified place or not applicable; Z87.891 Personal history of nicotine dependence
CPT/HCPCS: 99283

== ENCOUNTER 2020-09-09 12:07 | Emergency (ER) | payer SELFPAY ==
[2020-09-09 12:08] VITALS: BP 151/102; PULSE 77; RESP 15; TEMP 36.3; O2SAT 98; BMI 29.0
--- NOTE | 2020-09-09 12:27 | EX.ED.DYSGE1 ---
HPI History of Present Illness Chief Complaint: Cough Onset/Context/Timing Onset: Days (3) Context: Gradual Onset Timing: Continuous and Waxes and wanes Quality: Congested Location: Head Worsened by: At nighttime, laying flat Relieved by: Nothing Narrative Narrative: Patient presents with cough, nausea, and vomiting that is been getting worse over the past 2 days. Patient is concerned about possible COVID-19. 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 Patient admits to some fatigue. Patient denies any loss of taste or smell. Patient does admit to some rhinorrhea. Patient denies any fevers or chills. Patient states his symptoms have been worse at nighttime when he lays flat. Patient states his symptoms wax and wane. [facility] Medical History (Updated 09/09/20 @ 13:[address] Erik Virgen DO) Kidney stones Home Medications cyclobenzaprine 10 mg PO TID PRN #20 tab 05/06/20 [Rx Last Taken Unknown] naproxen 500 mg PO BID PRN #20 tab 05/06/20 [Rx Last Taken Unknown] cyclobenzaprine 10 mg PO TID PRN #20 tab 05/18/20 [Rx Last Taken Unknown] naproxen 500 mg PO BID #20 tab 05/18/20 [Rx Last Taken Unknown] Allergy/AdvReac Type Severity Reaction Status Date / Time Penicillins Allergy Angioedema Verified 09/09/20 12:10 Social History (Updated 09/09/20 @ 12:[address] Erik Virgen DO) Smoking Status: Former smoker alcohol intake: current alcohol intake frequency: a few times a month [facility] ED Constitutional Constitutional ED: Denies chills or fever(s) Eyes Eyes: Denies blurry vision or change in vision ENT ENT ED: Reports rhinorrhea; Denies sore throat Cardiovascular Cardiovascular: Denies chest pain or palpitations Respiratory/Chest Respiratory/Chest: Reports cough; Denies dyspnea Gastrointestinal Gastrointestinal: Reports nausea and vomiting Genitourinary Genitourinary ED: Reports hematuria; Denies dysuria Musculoskeletal Musculoskeletal: Reports back pain and neck pain Integumentary Denies abscess or rash Neurologic Neurologic: Denies headache(s) or weakness Allergic/Immunologic Allergic/Immunologic ED: Denies mouth swelling or urticaria EXAM Physical Exam Const Vital Signs: 09/09/20 12:08 Temperature 97.3 F L Temperature Source Temporal Pulse Rate 77 Respiratory Rate 15 Blood Pressure 151/102 H Blood Pressure Mean 118 Pulse Ox 98 Oxygen Delivery Method Room Air Positive well nourished and well developed General Appearance ED: well developed HEENT Reports moist mucous membranes Neck supple and no JVD Resp normal respiratory effort and clear to auscultation bilaterally Cardio regular rate and regular rhythm GI normal to inspection, nondistended, normoactive bowel sounds and non-tender Palpation: soft Extremity General Extremety ED: Negative for edema or tenderness General Extremity: Negative for edema Neuro oriented x3, CN's II-XII intact bilaterally and no sensory deficits noted Sensorium / Orientation: alert Motor Exam: strength 5/5 throughout Psych mental status grossly normal MDM MDM MDM Narrative Medical decision making narrative: COVID-19 rapid antigen was obtained and was negative. Patient was advised that this may be some other viral upper respiratory infection. Patient was instructed to drink plenty of fluids. Patient was instructed to follow-up with his primary care physician in 5 to 7 days. Patient understood and was agreeable with the plan. All questions were answered. Discharge Plan Triage Chief Complaint: Cough ED Provider: Erik Virgen Dx/Rx/DC Orders Clinical Impression: Upper respiratory infection, viral Instructions: ED URI, Viral, No Abx (Adult) Prescriptions: No Action cyclobenzaprine 10 MG tablet 10 mg PO TID PRN (Reason: Muscle Spasm) Qty: 20 RF: 0 naproxen 500 MG tablet 500 mg PO BID PRN Qty: 20 RF: 0 cyclobenzaprine 10 MG tablet 10 mg PO TID PRN (Reason: Muscle Spasm) Qty: 20 RF: 0 naproxen 500 MG tablet 500 mg PO BID Qty: 20 RF: 0 Stand Alone Forms: ED Work / School Excuse Primary Care Provider: Care Physician,No Primary Referrals: Gena Loredo DO [STAFF PHYSICIAN] - 5-7 Days Care Physician,No Primary [Primary Care Provider] - Disposition Disposition: Home, self care
[2020-09-09 13:59] VITALS: PULSE 77; RESP 16; O2SAT 98
== END 2020-09-09 14:01 | disposition home or self-care (01) ==
PROVIDERS: Emergency Provider Emergency Medicine
DX: J06.9 Acute upper respiratory infection, unspecified (principal); Z87.891 Personal history of nicotine dependence
CPT/HCPCS: 87426; 99282

== ENCOUNTER 2021-09-12 16:18 | Emergency (ER) | payer SELFPAY ==
[2021-09-12 16:18] VITALS: BP 143/71; PULSE 99; RESP 16; TEMP 36.4; O2SAT 99; BMI 25.4
--- NOTE | 2021-09-12 16:30 | RAD_ITS ---
STUDY: X-RAY - RIGHT FOOT CLINICAL: Male, 41 years old. PAIN TECHNIQUE: 3 view(s) of the foot. COMPARISON: None. FINDINGS: The posterior calcaneus demonstrates a lucency extending across the cortex suspicious for nondisplaced fracture. Normal visualized subtalar, talonavicular, calcaneocuboid, tarsal and tarsometatarsal articulations. Normal metatarsi. Normal metatarsophalangeal joint of the great toe. Normal tibial and fibular sesamoid bones. Normal interphalangeal joint of the great toe. Normal phalanges of the great toe. Normal second through fifth metatarsophalangeal joints. Normal interphalangeal joints and phalanges of the lesser toes. Mild soft tissue swelling posterior and caudal to the calcaneus. RAD/Foot min 3 Views IMPRESSION: Horizontally oriented fracture of the posterior calcaneus with adjacent soft tissue swelling. Electronically Signed: Dwight Carson MD at 16:53 EDT ,
--- NOTE | 2021-09-12 18:35 | ED.RN ---
PT STATES HE WANTS TO LEAVE BECAUSE HE HAS BEEN WAITING TOO LONG AND HASN'T GOTTEN ANY PAIN MEDICINE. PT LEFT AT 1740
== END 2021-09-12 17:40 | disposition left against medical advice (07) ==
LOC: ED 18:46
DX: S92.001A Unspecified fracture of right calcaneus, initial encounter for closed fracture (principal); X58.XXXA Exposure to other specified factors, initial encounter; Z53.29 Procedure and treatment not carried out because of patient's decision for other reasons
CPT/HCPCS: 73630

== ENCOUNTER 2022-01-08 17:41 | Emergency (ER) | payer OTHER, SELFPAY ==
[2022-01-08 17:42] VITALS: BP 147/96; PULSE 98; RESP 14; TEMP 36.6; O2SAT 98; BMI 23.4
--- NOTE | 2022-01-08 18:05 | EX.ED.DYSGE1 ---
HPI History of Present Illness Chief Complaint: Headache Informant: patient Onset/Context/Timing Onset: Days (3 days) Context: Gradual Onset Narrative Narrative: Patient presents with concerns for COVID. He states he developed a headache 3 days ago. He has a sore throat with fever up to 104.9. He was having vomiting and diarrhea yesterday. He states that his work will not except a home COVID test so he came here to be tested. He does report taking excessive amounts of ibuprofen today to help with pain. His last dose of Tylenol was 2 hours ago. [facility] Medical History (Updated 01/08/22 @ 19:[address] Antoinette Fu MD) Kidney stones Home Medications NK 01/08/22 [History Last Taken Unknown] Allergy/AdvReac Type Severity Reaction Status Date / Time Penicillins Allergy Angioedema Verified 01/08/22 17:45 Surgical History (Updated 01/08/22 @ 18:[address] Antoinette Fu MD) History of renal stent Social History Smoking Status: Former smoker alcohol intake: current alcohol intake frequency: a few times a month ROS ROS ED Constitutional Constitutional ED: Reports fever(s); Denies chills Eyes Eyes: Denies change in vision or discharge from eye(s) ENT ENT ED: Reports sore throat; Denies discharge from eye(s) or rhinorrhea Cardiovascular Cardiovascular: Denies chest pain or palpitations Respiratory/Chest Respiratory/Chest: Reports cough and other Details: Patient reports chronic cough, unchanged from baseline ; Denies dyspnea Gastrointestinal Gastrointestinal: Reports diarrhea, nausea and vomiting; Denies abdominal pain Genitourinary Genitourinary ED: Denies difficulty urinating or dysuria Musculoskeletal Musculoskeletal: Reports myalgias; Denies back pain or extremity pain Integumentary Denies Abrasions or rash Neurologic Neurologic: Reports headache(s); Denies weakness Psychiatric Psychiatric: Denies anxiety or depression Allergic/Immunologic Allergic/Immunologic ED: Denies lip swelling or urticaria EXAM Physical Exam Const Vital Signs: 01/08/22 17:42 01/08/22 19:21 Temperature 97.9 F Temperature Source Temporal Pulse Rate 98 Respiratory Rate 14 Blood Pressure 147/96 H Blood Pressure Mean 113 Pulse Ox 98 98 Oxygen Delivery Method Room Air Positive well nourished and well developed General Appearance ED: well developed HEENT Reports normocephalic and head/scalp atraumatic Eyes PERRL and EOMs intact bilaterally Neck supple and no meningeal signs Chest Wall inspection of chest normal and palpation of chest normal Resp normal respiratory effort and clear to auscultation bilaterally Cardio regular rate and regular rhythm GI normal to inspection, nondistended, normoactive bowel sounds Palpation: soft Extremity normal to inspection Neuro oriented x3 and no sensory deficits noted Sensorium / Orientation: alert Motor Exam: strength 5/5 throughout Psych mental status grossly normal Skin no rashes or lesions noted MDM MDM MDM Narrative Medical decision making narrative: COVID test obtained. Patient requesting something for headache. He had already taken significant as ibuprofen today and Tylenol within the last 2 hours. He is given Reglan and Benadryl. I initially ordered prednisone but patient declined this stating it makes him angry. Treatment and Re-Evaluation Narrative: COVID test initially returns negative. Eyes went and spoke with the patient. When I came back to print out his test results for him the test result now says positive. We called the lab and they state that the confirmatory test that is performed returned positive and therefore the patient is considered positive for COVID. This was then re-explain to patient and at bedside. He states his company requires 5 days of quarantine. Symptoms started on Monday and he is written off work through Monday. Discharge Plan Triage Chief Complaint: Headache ED Provider: Antoinette Fu Dx/Rx/DC Orders Clinical Impression: COVID-19 Instructions: Coronavirus Disease 2019 (COVID-19): Overview, Coronavirus Disease 2019 (COVID-19): Caring for Yourself or Others Prescriptions: No Action NK Stand Alone Forms: ED Work / School Excuse Primary Care Provider: Care Physician,No Primary Referrals: Care Physician,No Primary [Primary Care Provider] - Disposition Disposition: Home, Self Care Discharge Date/Time: 01/08/22 19:21
[2022-01-08] MEDS: DiphenhydrAMINE 25 MG Capsule 50 MG PO (18:55)
[2022-01-08] MEDS: Metoclopramide 10 MG/10 ML UDC PO (18:55)
[2022-01-08] MEDS: predniSONE 20 MG Tablet 40 MG PO (19:03)
[2022-01-08 19:21] VITALS: O2SAT 98
== END 2022-01-08 19:21 | disposition home or self-care (01) ==
PROVIDERS: Emergency Provider Emergency Medicine; Visit Provider Emergency Medicine
DX: U07.1 COVID-19 (principal); Z87.891 Personal history of nicotine dependence
CPT/HCPCS: 87811; 99284

== ENCOUNTER 2022-02-28 08:48 | Emergency (ER) | payer MEDICAID, SELFPAY ==
[2022-02-28 08:48] VITALS: BP 142/90; PULSE 83; RESP 16; TEMP 37.2; O2SAT 97; BMI 27.0
--- NOTE | 2022-02-28 09:02 | EX.ED.VIS.EY ---
HPI History of Present Illness Chief Complaint: Eye Problem Narrative Narrative: 41-year-old male presents with right eye pain since yesterday at around 1100 in the morning, almost 22 hours ago. 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 He is unsure for piece of dirt, twig, or any other foreign object got into his right eye. He has flushed his eye, but his right eye has been tearing and red since this happened yesterday. He got worse overnight to the point where he woke up this morning and his right eye was swollen shut. He is having difficulty opening his eye secondary to pain. He denies any exudate. He has had corneal abrasion in the past and this feels similar. He does not wear contact lenses. He presents with pain in his right eye. He denies any loss of vision but states he is having difficulty opening his eye secondary to the pain and redness. [facility] Medical History Kidney stones Home Medications ciprofloxacin HCl 0.3 % eye drops 1 drp RIGHT EYE Q6H 5 days #5 mL 02/28/22 [Rx Last Taken Unknown] Allergy/AdvReac Type Severity Reaction Status Date / Time Penicillins Allergy Angioedema Verified 02/28/22 08:50 Surgical History History of renal stent Social History Smoking Status: Former smoker alcohol intake: current alcohol intake frequency: a few times a month ROS ROS ED ROS Narrative Constitutional: No fever, no chills. HEENT: No sore throat. No neck pain. No loss of vision. No rhinorrhea. Pain and tearing of right eye. No exudate. Positive difficulty opening right eye. Cardiovascular: No chest pain. No palpitations. No pedal edema. Respiratory: No cough, no shortness of breath. Abdominal: No abdominal pain. No nausea. No vomiting. Genitourinary: No dysuria. No hematuria. Musculoskeletal: No myalgias. No arthralgias. Neurologic: No headaches. No dizziness. No lightheadedness. Skin: No rash. No change in color. Psychiatric: No depression. No anxiety. EXAM Physical Exam Narrative Exam Narrative: Afebrile. Vital signs noted. HEENT: Normocephalic. Atraumatic. PERRL, EOMI. Neck soft and supple. No point tenderness or step off. Right eye with conjunctival injection and noted tearing. No noted exudate. Cardiovascular: Regular rate and rhythm. No murmurs, rubs, or gallops appreciated. Respiratory: No tachypnea. Lungs clear to auscultation bilaterally. Gastrointestinal: Abdomen soft, nontender, with normoactive bowel sounds. No rebound or guarding. Neurological: Awake. Alert. Nonfocal, nonlateralizing. Skin: No rash. Normal color. No pallor. Musculoskeletal: No pedal edema. Full range of motion extremities. Const Vital Signs: 02/28/22 08:48 Temperature 98.9 F Temperature Source Temporal Pulse Rate 83 Respiratory Rate 16 Blood Pressure 142/90 H Blood Pressure Mean 107 Pulse Ox 97 Oxygen Delivery Method Room Air MDM MDM MDM Narrative Medical decision making narrative: Tetracaine was instilled in the right eye. Visual acuity will be obtained. Fluorescein was also added. Examination under bluelight/Alvarez lamp does reveal uptake in a linear abrasion over the pupil. Negative Baron sign. No irregular shaped pupil, and his pupil is reactive towards light. He was given a prescription for ciprofloxacin ophthalmic drops to place in his eye 4 times a day for the next 5 days. He will follow-up with ophthalmology in the next 2 days. He was given a work excuse for the next 2 days. He will apply warm compresses and take [id number] analgesics. At this point in time, I feel he can be discharged safely home with follow-up. Return instructions to the emergency department were reviewed. Disposition is discharged home in stable condition. Discharge Plan Triage Chief Complaint: Eye Problem ED Provider: Rishi Schulte Dx/Rx/DC Orders Clinical Impression: Abrasion, corneal, Acute right eye pain Instructions: ED Corneal Abrasion Prescriptions: New ciprofloxacin HCl 0.3 % drops 1 drp RIGHT EYE Q6H 5 Days Qty: 5 0RF Rx Instructions: administer while awake Stand Alone Forms: ED Work / School Excuse Primary Care Provider: Care Physician,No Primary Referrals: Geo Bhatia MD [Med Staff - Active Staff] - 3-5 Days if not improving Care Physician,No Primary [Primary Care Provider] - Disposition Disposition: Home, Self Care
[2022-02-28] MEDS: Fluorescein 1 MG STRIP 1 STRIP OPHTHALMIC (09:14)
[2022-02-28] MEDS: Tetracaine 0.5% Ophthalmic Bottle OPHTHALMIC (09:15)
== END 2022-02-28 09:47 | disposition home or self-care (01) ==
PROVIDERS: Emergency Provider Emergency Medicine; Visit Provider Emergency Medicine
DX: S05.00XA Injury of conjunctiva and corneal abrasion without foreign body, unspecified eye, initial encounter (principal); Z87.891 Personal history of nicotine dependence; Y93.H9 Activity, other involving exterior property and land maintenance, building and construction; Y99.9 Unspecified external cause status; Y92.89 Other specified places as the place of occurrence of the external cause
CPT/HCPCS: 99282

== ENCOUNTER 2022-10-10 14:30 | Emergency (ER) | payer MEDICAID, SELFPAY ==
[2022-10-10 14:31] VITALS: BP 128/109; PULSE 112; RESP 16; TEMP 36.6; O2SAT 99; BMI 22.5
--- NOTE | 2022-10-10 14:50 | RAD_ITS ---
EXAM: XR RIGHT FEMUR, 2 VIEWS CLINICAL INDICATION: bruising, injury TECHNIQUE: Frontal and lateral views of the right femur. COMPARISON: No relevant prior studies available. FINDINGS: BONES/JOINTS: Unremarkable. No acute fracture. No subluxation. Normal alignment. Preservation of the joint space. No sclerotic or destructive changes observed. SOFT TISSUES: Unremarkable. No soft tissue swelling or gas. No radiopaque foreign body. RAD/Femur Min 2 Views IMPRESSION: Negative right femur x-rays. Electronically Signed: Omar Martin MD at 15:26 EDT ,
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
== END 2022-10-10 16:03 | disposition home or self-care (01) ==
LOC: ED 15:56
PROVIDERS: Emergency Provider Emergency Medicine; Visit Provider Emergency Medicine
DX: S70.11XA Contusion of right thigh, initial encounter (principal); Z87.891 Personal history of nicotine dependence; Y04.8XXA Assault by other bodily force, initial encounter; M62.838 Other muscle spasm
CPT/HCPCS: 73552; 99282

== ENCOUNTER 2022-11-08 11:57 | Emergency (ER) | payer MEDICAID, SELFPAY ==
[2022-11-08 11:57] VITALS: BP 134/76; PULSE 78; RESP 14; TEMP 36.6; O2SAT 98; BMI 28.0
--- NOTE | 2022-11-08 12:33 | RAD_ITS ---
INDICATION: Trauma, Pain EXAMINATION/TECHNIQUE: X-RAY - RIGHT XR Elbow Min 3 Views COMPARISON: None FINDINGS: SOFT TISSUES: There is dorsal soft tissue swelling. No radiopaque foreign body. BONES/JOINTS: There is no displacement of the anterior or posterior fat pads. No acute fracture or subluxation. Normal alignment. Preservation of the joint space. No sclerotic or destructive changes observed. RAD/Elbow min 3 Views IMPRESSION: Dorsal soft tissue swelling, which could reflect local edema versus bursitis. No acute osseous abnormality of the right elbow. Electronically Signed: Itz Delgado MD at 13:00 EDT Reading Location ID and State: [id number] / Unknown , Service support ,
--- NOTE | 2022-11-08 12:33 | EDS_ITS ---
HPI History of Present Illness Chief Complaint: Upper Extremity Injury Narrative Narrative: 42-year-old male who denies significant past medical history presents with pain in his elbow after striking it against a metal object on Monday, 4 days ago. He states he was working on his car, and hit his right elbow on a piece of his car. Since that he has had pain and swelling, and worst pain with movement of his right elbow. He denies other injury. He thinks he may have chipped the b one given the amount of pain that he is experiencing. He denies any fevers or chills or any other symptoms. While he is right-hand dominant, he states he can write with his left hand. [facility] Medical History Kidney stones Home Medications ciprofloxacin HCl 0.3 % eye drops 1 drp RIGHT EYE Q6H 5 days #5 mL 02/28/22 [Rx Last Taken Unknown] cyclobenzaprine 10 mg tablet 10 mg PO TID PRN Muscle Spasm #15 TABLETS 10/10/22 [Rx Last Taken Unknown] Allergy/AdvReac Type Severity Reaction Status Date / Time Penicillins Allergy Angioedema Verified 11/08/22 11:59 Surgical History History of renal stent Social History Smoking Status: Former smoker alcohol intake: current alcohol intake frequency: a few times a month ROS ROS ED ROS Narrative Constitutional: No fever, no chills. HEENT: No sore throat. No neck pain. No loss of vision. No rhinorrhea. Cardiovascular: No chest pain. No palpitations. No pedal edema. Respiratory: No cough, no shortness of breath. Abdominal: No abdominal pain. No nausea. No vomiting. Genitourinary: No dysuria. No hematuria. Musculoskeletal: No myalgias. Right elbow pain worse with movement. Positive swelling of right elbow area. Neurologic: No headaches. No dizziness. No lightheadedness. Skin: No rash. No change in color. Psychiatric: No depression. No anxiety. EXAM Physical Exam Narrative Exam Narrative: Afebrile. Vital signs noted. HEENT: Normocephalic. Atraumatic. PERRL, EOMI. Neck soft and supple. No point tenderness or step off. Cardiovascular: Regular rate and rhythm. No murmurs, rubs, or gallops appreciated. Respiratory: No tachypnea. Lungs clear to auscultation bilaterally. Gastrointestinal: Abdomen soft, nontender, with normoactive bowel sounds. No r ebound or guarding. Neurological: Awake. Alert. Nonfocal, nonlateralizing. Skin: No rash. Normal color. No pallor. Musculoskeletal: No pedal edema. Positive swelling and tenderness to right olecranon area. Neurovascular tact distally to right arm with palpable radial pulse. Uninjured at the shoulder or wrist. No overt erythema. Const Vital Signs: 11/08/22 11:57 Temperature 97.8 F Temperature Source Temporal Pulse Rate 78 Respiratory Rate 14 Blood Pressure 134/76 H Blood Pressure Mean 95 Pulse Ox 98 Oxygen Delivery Method Room Air MDM MDM MDM Narrative Medical decision making narrative: Concern is for traumatic bursitis versus olecranon fracture. I see no clinical evidence of a dislocation. X-rays were obtained of the right elbow in 3 views. I interpreted his x-rays independently and see no evidence of acute fracture, there is soft tissue swelling. I reviewed the radiology report which confirms my independent interpretation. At this point in time, I offered him an ice pack and he declined. He will be placed in an Martin wrap and follow-up with orthopedics as needed, or his primary care provider. I offered to write him a prescription for high-dose anti-inflammatories, but he declined stating that he has some leftover. He requested a note to be off work today which was granted. At this point in time, I do not feel he requires observation and I do not feel any laboratory test is needed. I have low concern for septic bursitis as he does not have a large amount of erythema and he is afebrile. I do not feel antibiotics are indicated. Return instructions to the emergency department were reviewed. Disposition is discharged home in stable condition. Discharge Plan Triage Chief Complaint: Upper Extremity Injury ED Provider: Rishi Schulte Dx/Rx/DC Orders Clinical Impression: Elbow contusion, Traumatic bursitis Instructions: ED Contusion, Elbow, ED Bursitis Elbow Olecranon Prescriptions: No Action ciprofloxacin HCl 0.3 % drops 1 drp RIGHT EYE Q6H 5 Days Qty: 5 0RF Rx Instructions: administer while awake cyclobenzaprine [cyclobenzaprine] 10 mg tablet 10 mg PO TID PRN (Reason: Muscle Spasm) Qty: 15 0RF Stand Alone Forms: ED Work / School Excuse Primary Care Provider: Care Physician,No Primary Referrals: Freedom Magallanes MD [Med Staff - Active Staff] - 1 Week if not improving Care Physician,No Primary [Primary Care Provider] - Disposition Disposition: Home, Self Care
[2022-11-08 13:19] VITALS: BP 122/69; PULSE 64; RESP 15; O2SAT 99
== END 2022-11-08 13:20 | disposition home or self-care (01) ==
PROVIDERS: Emergency Provider Emergency Medicine; Visit Provider Emergency Medicine
DX: S50.01XA Contusion of right elbow, initial encounter (principal); Z87.891 Personal history of nicotine dependence; M71.521 Other bursitis, not elsewhere classified, right elbow; W22.09XA Striking against other stationary object, initial encounter; Y93.89 Activity, other specified; Y92.810 Car as the place of occurrence of the external cause
CPT/HCPCS: 73080; 99282

== ENCOUNTER 2023-09-11 14:14 | Emergency (ER) | payer SELFPAY ==
[2023-09-11 14:15] VITALS: BP 143/93; PULSE 75; RESP 18; TEMP 36.1; O2SAT 98; BMI 22.8
--- NOTE | 2023-09-11 15:29 | EX.ED.DYSGE1 ---
HPI History of Present Illness Chief Complaint: Flank Pain Informant: patient and family Narrative Narrative: 43-year-old male presenting to the emergency room with right flank pain. Patient states he has a history of chronic kidney stones and so it is not atypical for him to see blood intermittently in his urine. He states that about a week ago he fell striking his right lateral abdomen and flank on a coffee table. He states that he developed a bruise and hematoma. He is intermittently had difficulty urinating. He particularly notes decreased urination today. Today stepped in a hole felt like he twisted his back. He states that his pain is increased and now he is experience intermittent nausea and vomiting. He denies any testicular pain. [facility] Medical History Kidney stones Home Medications ?Medication ?Instructions ?Recorded ?Last Taken ?Type ciprofloxacin HCl 0.3 % eye drops 1 drp RIGHT EYE Q6H 5 days #5 mL 02/28/22 Unknown Rx cyclobenzaprine 10 mg tablet 10 mg PO TID PRN Muscle Spasm #15 10/10/22 Unknown Rx TABLETS hydrocodone-acetaminophen 5-325mg 1 tab PO Q6H PRN PRN Pain 3 days 09/11/23 Unknown Rx 5mg-325mg #15 TABLETS ketorolac 10 mg tablet 10 mg PO Q8H PRN pain 5 days #15 09/11/23 Unknown Rx tabs Allergy/AdvReac Type Severity Reaction Status Date / Time Penicillins Allergy Angioedema Verified 09/11/23 14:15 Surgical History History of renal stent Social History Smoking Status: Former smoker alcohol intake: current alcohol intake frequency: a few times a month [facility] ED Constitutional Constitutional ED: Denies chills, fever(s) or weight loss Eyes Eyes: Denies change in vision or diplopia ENT ENT ED: Denies ear pain, rhinorrhea or sore throat Cardiovascular Cardiovascular: Reports other Details: Near syncope with pain ; Denies chest pain, orthopnea, palpitations or racing heartbeat Respiratory/Chest Respiratory/Chest: Denies cough, dyspnea or orthopnea Gastrointestinal Gastrointestinal: Reports abdominal pain, nausea and vomiting; Denies diarrhea Genitourinary Genitourinary ED: Reports hematuria; Denies dysuria or urinary frequency Musculoskeletal Musculoskeletal: Reports back pain; Denies arthralgias or myalgias Integumentary Denies abscess or rash Neurologic Neurologic: Denies headache(s) or weakness Psychiatric Psychiatric: Denies anxiety, depression, suicidal ideation or suicidal thoughts Endocrine Endocrinology: Denies polydipsia, polyphagia or polyuria Allergic/Immunologic Allergic/Immunologic ED: Denies mouth swelling, tongue swelling or urticaria EXAM Physical Exam Const Vital Signs: 09/11/23 14:15 09/11/23 16:14 Temperature 96.9 F L 98.1 F Temperature Source Temporal Oral Pulse Rate 75 70 Respiratory Rate 18 16 Blood Pressure 143/93 H 131/92 H Blood Pressure Mean 109 105 Pulse Ox 98 100 Oxygen Delivery Method Room Air Room Air Positive well nourished and well developed General Appearance ED: well developed HEENT Reports normocephalic, head/scalp atraumatic and moist mucous membranes Eyes PERRL and EOMs intact bilaterally Neck no lymphadenopathy, supple and no JVD Resp normal respiratory effort and clear to auscultation bilaterally Cardio regular rate, regular rhythm and no murmurs GI GI Narrative: There is a 7 cm contusion and hematoma in a state of healing and that the outside appears somewhat green in color the inside purpleish to blue. This is located on the lateral mid axillary line of the right mid abdomen. I do not appreciate any flank ecchymosis. Normal bowel sounds. Palpation: soft Back/Spine no CVA tenderness and normal ROM Extremity normal to inspection General Extremety ED: Negative for edema General Extremity: Negative for edema Neuro oriented x3 and CN's II-XII intact bilaterally Sensorium / Orientation: alert Motor Exam: strength 5/5 throughout Psych mental status grossly normal Mood & Affect: Negative for depressed or tearful Skin no rashes or lesions noted and no wounds MDM MDM MDM Narrative Medical decision making narrative: Basic blood work was obtained showed a white count of 10.8 creatinine 1.01. Urinalysis 5-10 white cells 5-10 red cells no bacteria. Patient received IV fluids morphine Zofran. CT noncontrasted shows a mid ureteral stone measuring approximately 6 to 6-1/2 mm. There is some associated hydronephroureter. Patient was redosed with Toradol and morphine. Reviewed that ER evaluation and discussed the CT findings and showed him the CT. When I recommend he follow-up with urology. He states he has seen a urologist in [place] but it has been sometime. I will write for Toradol and hydrocodone as an outpatient. He was explicitly told not to ingest any other anti-inflammatories while taking the Toradol. He states that he will be going to work tomorrow. History & Record Review Discussion w/independent historian: Patient Lab Data Attestation: I reviewed the patient's lab results. Labs: Laboratory Results - last 24 hr 09/11/23 09/11/23 15:14 16:05 WBC 10.5 RBC 5.26 Hgb 15.9 Hct 48.6 MCV 92.4 MCH 30.2 MCHC 32.7 RDW Std Deviation 42.4 RDW Coeff of Chintan 12.5 Plt Count 337 MPV 11.3 Immature Gran % (Auto) 0.700 Neut % (Auto) 77.1 H Lymph % (Auto) 12.[address] [place] % (Auto) 7.3 Eos % (Auto) 1.7 Baso % (Auto) 0.9 Absolute Neuts (auto) 8.1 H Absolute Lymphs (auto) 1.29 Nucleated RBC % 0 Sodium 137 Potassium 3.7 Chloride 103 Carbon Dioxide 30.0 Anion Gap 4 L BUN 14 Creatinine 1.01 Estim Creat Clear Calc 92.39 Est GFR (MDRD) Af Amer 103 Est GFR (MDRD) Non-Af 85 BUN/Creatinine Ratio 13.9 Glucose 94 Calcium 9.5 Total Bilirubin 0.30 Direct Bilirubin 0.06 AST 17 ALT 27 Alkaline Phosphatase 98 Total Protein 8.1 Albumin 4.0 Globulin 4.1 Lipase 34 Urine Color Yellow Urine Clarity Clear Urine pH 6.0 Ur Specific [place] 1.015 Urine Protein 30 H Urine Glucose (UA) Normal Urine Ketones 5 H Urine Occult Blood 50 H Urine Nitrite Negative Urine Bilirubin Negative Urine Urobilinogen Normal Ur Leukocyte Esterase 25 H Urine RBC 5-10 SEEN Urine WBC 5-10 SEEN Ur Squamous Epith Cells 0 SEEN Urine Bacteria 0 SEEN Urine Mucus 0 SEEN Discharge Plan Triage Chief Complaint: Flank Pain ED Provider: Leopoldo Deal Dx/Rx/DC Orders Clinical Impression: Calculus of distal right ureter, Abdominal wall hematoma, Renal colic on right side Instructions: ED Hematoma, ED Kidney Stone with Pain Prescriptions: New ketorolac 10 mg tablet 10 mg PO Q8H PRN (Reason: pain) 5 Days Qty: 15 0RF hydrocodone-acetaminophen 5-325 mg tablet 1 tab PO Q6H PRN PRN (Reason: Pain) 3 Days Qty: 15 0RF No Action ciprofloxacin HCl 0.3 % drops 1 drp RIGHT EYE Q6H 5 Days Qty: 5 0RF Rx Instructions: administer while awake cyclobenzaprine [cyclobenzaprine] 10 mg tablet 10 mg PO TID PRN (Reason: Muscle Spasm) Qty: 15 0RF Primary Care Provider: Care Physician,No Primary Referrals: Willy King MD [Med Staff - Active Staff] - As soon as possible (for urology) Care Physician,No Primary [Primary Care Provider] - Print Language: Romanian Disposition Disposition: Home, Self Care
[2023-09-11] MEDS: 0.9% Normal Saline (1000mL) 1,000 ML 999 ML IV (15:40)
[2023-09-11] MEDS: Ondansetron 4 MG/2 ML Vial IV (15:40)
[2023-09-11] MEDS: Morphine 4 MG/ML Syringe IV ×2 (15:41→17:45)
[2023-09-11 16:01] LABS: Absolute Lymphocyte Count 1.29 X10^3/uL (0.83-4.51); Absolute Neutrophil Count 8.1 X10^3/uL (2.0-7.7); Basophil# 0.09 X10^3/uL; Basophil% 0.9 % (0-1); Eosinophil# 0.18 X10^3/uL; Eosinophils% 1.7 % (0-5); Hematocrit 48.6 % (40-54); Hemoglobin 15.9 g/dL (13.0-16.5); Lymphocyte # 1.29 X10^3/ul (0.83-4.51); Lymphocyte % 12.3 % (19-41); Mean Corp Hgb Conc 32.7 g/dL (32-36); Mean Corpuscular Hgb 30.2 pg (27.0-32.0); Mean Corpuscular Volume 92.4 fL (80-94); Mean Platelet Vol. 11.3 fl (6.2-12.0); Monocyte# 0.77 X10^3/uL; Monocyte% 7.3 % (0-10); NRBC Flagged by Analyzer 0 % (0-5); Neutrophil # 8.11 X10^3/uL (2.7-7.7); Neutrophil % 77.1 % (47-70); Platelet Count 337 K/mm3 (150-450); RBC Distribution Width CV 12.5 % (11.6-14.6); RBC Distribution Width SD 42.4 fl (35.1-43.9); Red Blood Count 5.26 M/mm3 (4.6-6.2); White Blood Count 10.5 K/mm3 (4.4-11.0)
[2023-09-11 16:12] LABS: Bacteria 0 SEEN /hpf (None Seen); Mucous, Urine 0 SEEN /hpf (<or=2+); Squamous Epithelial Cells - UA 0 SEEN /hpf (0-5)
[2023-09-11 16:14] VITALS: BP 131/92; PULSE 70; RESP 16; TEMP 36.7; O2SAT 100
[2023-09-11 16:20] LABS: AST(SGOT) 17 U/L (15-37); Alanine Aminotransfer ALT/SGPT 27 U/L (16-61); Alkaline Phosphatase 98 U/L (45-117); Anion Gap 4 (5-15); BUN 14 mg/dL (7-18); BUN/Creat Ratio 13.9 RATIO (10-20); Bilirubin, Direct 0.06 mg/dL (0.00-0.30); Calcium,Total 9.5 mg/dL (8.5-10.1); Chloride 103 mmol/L (98-107); Creatinine, Serum 1.01 mg/dL (0.70-1.30); EST Glomerular Filtration Rate 85 mL/min (>60); Est Glom Filt Rate - Afr Amer 103 mL/min (>60); Estimated Creatinine Clearance 92.39 ml/min; Globulin 4.1 g/dL (2.2-4.2); Glucose 94 mg/dL (74-106); Lipase 34 U/L (13-75); Potassium 3.7 mmol/L (3.5-5.1); Protein, Total 8.1 g/dL (6.4-8.2); Sodium Level 137 mmol/L (136-145)
[2023-09-11 16:44] LABS: Color, Urine Yellow (Yellow); Glucose, Dipstick Normal (Normal); Ketone-Dipstick 5 mg/dl (Negative); Leukocyte Esterase-Dipstick 25 /ul (Negative); Nitrite-Dipstick Negative (Negative); Occult Blood-Urine 50 /ul (Negative); Protein-Dipstick 30 mg/dl (Negative); Specific Gravity, Urine 1.015 (1.002-1.030); Urine Bilirubin Dipstick Negative (Negative); Urine Clarity Clear (Clear); Urine Urobilinogen Normal (Normal)
--- NOTE | 2023-09-11 17:10 | CT_ITS ---
INDICATION: flank pain EXAMINATION: CT ABDOMEN AND PELVIS WITHOUT CONTRAST - CT Abdomen And Pelvis W/O Contrast Injection TECHNIQUE: Helically acquired images were obtained of the abdomen and pelvis without oral or IV contrast. A radiation dose optimization technique was used for this scan. IV Contrast dosage and agent: None. Oral contrast: None. COMPARISON: October 19, 2016. FINDINGS: LOWER CHEST: Lung bases are clear. No cardiomegaly or pericardial effusion. LIVER: Homogeneous. No focal mass. GALLBLADDER AND BILIARY TREE: No calcified gallstones. No gallbladder distension or wall edema. No intra- or extrahepatic biliary ductal dilation. PANCREAS: No focal cystic or solid mass. SPLEEN: Normal size without focal cystic or solid mass. ADRENAL GLANDS: No nodules. KIDNEYS AND URETERS: Normal renal size and position. Unremarkable renal cortex.. 3.5 mm right proximal ureteral stone. Minimal right extrarenal pelvis dilatation and proximal ureteral dilatation. No telly hydronephrosis. Nonobstructive 3 mm left renal stone. No left ureteral stone. Unremarkable bladder. PERITONEUM: No ascites or free air. No other fluid collection. BOWEL: No acute gastric finding. No small bowel distention or focal wall thickening. Distal colonic diverticulosis without evidence of diverticulitis. LYMPH NODES: No enlarged mesenteric or retroperitoneal lymph nodes. VESSELS: Minimal scattered aortic atherosclerosis without ectasia.. ABDOMINAL WALL: No discrete abdominal or pelvic wall hernia. BONES: No lytic or blastic abnormality. CT/Abdomen/Pelvis without Cont IMPRESSION: 3.5 mm proximal right ureteral stone with mild renal pelviectasis. Nonobstructive left nephrolithiasis. Distal colonic diverticulosis without evidence of diverticulitis. Electronically Signed: Braulio Lizarraga MD at 17:52 EDT ,
[2023-09-11 17:19] LABS: Red Blood Cells-Urine 5-10 SEEN /hpf (0-5); White Blood Cells 5-10 SEEN /hpf (0-5)
[2023-09-11] MEDS: Ketorolac 30 MG/ML Syringe IV (17:44)
[2023-09-11 18:13] VITALS: BP 146/100; PULSE 78; RESP 16; TEMP 36.7; O2SAT 98
== END 2023-09-11 18:13 | disposition home or self-care (01) ==
PROVIDERS: Emergency Provider Emergency Medicine; Visit Provider Emergency Medicine
DX: N20.1 Calculus of ureter (principal); S30.1XXA Contusion of abdominal wall, initial encounter; Z87.891 Personal history of nicotine dependence
CPT/HCPCS: 74176; 80048; 80076; 81001; 83690; 85025; 96361; 96374; 96375; 96376; 99284; J7030; A4216; J2405

== ENCOUNTER 2023-11-15 07:41 | Emergency (ER) | payer SELFPAY ==
[2023-11-15 07:42] VITALS: BP 124/87; PULSE 91; RESP 14; TEMP 36.8; O2SAT 98; BMI 23.8
--- NOTE | 2023-11-15 08:01 | EDS_ITS ---
HPI History of Present Illness Chief Complaint: Back Informant: patient Narrative Narrative: 43-year-old male presenting to the emergency room with back pain. Patient states that a couple days ago he was preparing for a garage sale when he went to lift a table and he turned to his left with his feet planted. He states that he immediately got back pain. He states by the next day he was having significant pain with any type of movement. He denies any radicular symptoms. No bowel or bladder control changes. No fever. No significant back trauma noted. 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 [facility] Medical History Kidney stones Home Medications ?Medication ?Instructions ?Recorded ?Last Taken ?Type ciprofloxacin HCl 0.3 % eye drops 1 drp RIGHT EYE Q6H 5 days #5 mL 02/28/22 Unknown Rx cyclobenzaprine 10 mg tablet 10 mg PO TID PRN Muscle Spasm #15 10/10/22 Unknown Rx TABLETS hydrocodone-acetaminophen 5-325mg 1 tab PO Q6H PRN PRN Pain 3 days 09/11/23 Unknown Rx 5mg-325mg #15 TABLETS ketorolac 10 mg tablet 10 mg PO Q8H PRN pain 5 days #15 09/11/23 Unknown Rx tabs Allergy/AdvReac Type Severity Reaction Status Date / Time Penicillins Allergy Angioedema Verified 11/15/23 07:53 Surgical History History of renal stent Social History Smoking Status: Former smoker alcohol intake: current alcohol intake frequency: a few times a month [facility] ED Constitutional Constitutional ED: Denies chills, fever(s) or weight loss Eyes Eyes: Denies change in vision or diplopia ENT ENT ED: Denies ear pain, rhinorrhea or sore throat Cardiovascular Cardiovascular: Denies chest pain, orthopnea, palpitations or racing heartbeat Respiratory/Chest Respiratory/Chest: Denies cough, dyspnea or orthopnea Gastrointestinal Gastrointestinal: Denies abdominal pain, diarrhea, nausea or vomiting Genitourinary Genitourinary ED: Denies dysuria, hematuria or urinary frequency Musculoskeletal Musculoskeletal: Reports back pain; Denies arthralgias, myalgias or neck pain Integumentary Denies abscess or rash Neurologic Neurologic: Denies headache(s), paresthesias or weakness Psychiatric Psychiatric: Denies anxiety, depression, suicidal ideation or suicidal thoughts Endocrine Endocrinology: Denies polydipsia, polyphagia or polyuria Allergic/Immunologic Allergic/Immunologic ED: Denies mouth swelling, tongue swelling or urticaria EXAM Physical Exam Const Vital Signs: 11/15/23 07:42 Temperature 98.3 F Temperature Source Temporal Pulse Rate 91 Respiratory Rate 14 Blood Pressure 124/87 H Blood Pressure Mean 99 Pulse Ox 98 Oxygen Delivery Method Room Air Positive well nourished and well developed General Appearance ED: well developed HEENT Reports normocephalic, head/scalp atraumatic and moist mucous membranes Eyes PERRL and EOMs intact bilaterally Neck no lymphadenopathy, supple and no JVD Resp normal respiratory effort and clear to auscultation bilaterally Cardio regular rate, regular rhythm and no murmurs GI normal to inspection, nondistended, normoactive bowel sounds and non-tender Palpation: soft Back/Spine no CVA tenderness Back/Spine Narrative: Patient with painful range of motion. Patient has increased tissue texture changes on the right side. No rashes noted. He is neurovascularly intact distally in the legs. Normal saddle sensation. Extremity normal to inspection General Extremety ED: Negative for edema General Extremity: Negative for edema Neuro oriented x3 and CN's II-XII intact bilaterally Neuro Narrative: Normal sensation of the lower extremities Sensorium / Orientation: alert Motor Exam: strength 5/5 throughout Deep Tendon Reflexes: Rt Patellar (L4): 2+, Lt Patellar (L4): 2+, Rt Ankle (S1): 2+ and Lt Ankle (S1): 2+ Deep Tendon Reflexes Back: Rt Patellar (L4): 2+, Lt Patellar (L4): 2+, Rt Ankle (S1): 2+ and Lt Ankle (S1): 2+ Psych mental status grossly normal Mood & Affect: Negative for depressed or tearful Skin no rashes or lesions noted and no wounds MDM MDM MDM Narrative Medical decision making narrative: Differential diagnosis includes back sprain strain, spinal stenosis, cauda equina, disc herniation, infectious processes. Based on the history and physical I think this is most likely muscular spasm. Patient had a CT the end of August for ureterolithiasis. I reviewed the CT specifically looking at the lumbar spine views. There are some mild degenerative changes noted L5-S1 no obvious spinal stenosis. He is neurovascular intact. Patient will be treated with anti-inflammatories, muscle relaxants, and short course of pain medication. Would recommend PCP follow-up. History & Record Review Discussion w/independent historian: Patient Discharge Plan Triage Chief Complaint: Back ED Provider: Leopoldo Deal Dx/Rx/DC Orders Prescriptions: No Action ciprofloxacin HCl 0.3 % drops 1 drp RIGHT EYE Q6H 5 Days Qty: 5 0RF Rx Instructions: administer while awake cyclobenzaprine [cyclobenzaprine] 10 mg tablet 10 mg PO TID PRN (Reason: Muscle Spasm) Qty: 15 0RF ketorolac 10 mg tablet 10 mg PO Q8H PRN (Reason: pain) 5 Days Qty: 15 0RF hydrocodone-acetaminophen 5-325 mg tablet 1 tab PO Q6H PRN PRN (Reason: Pain) 3 Days Qty: 15 0RF Primary Care Provider: Care Physician,No Primary Referrals: Care Physician,No Primary [Primary Care Provider] - Print Language: Persian
[2023-11-15] MEDS: Ketorolac 60 MG/2 ML Vial IM (08:14)
[2023-11-15] MEDS: HYDROcodone Bitartrate/Apap 5/325 Tablet PO (08:14)
[2023-11-15] MEDS: cycloBENZAPRine HCl 10 MG Tablet PO (08:14)
== END 2023-11-15 08:43 | disposition home or self-care (01) ==
PROVIDERS: Emergency Provider Emergency Medicine; Visit Provider Emergency Medicine
DX: M54.9 Dorsalgia, unspecified (principal); Z87.891 Personal history of nicotine dependence; X50.0XXA Overexertion from strenuous movement or load, initial encounter
CPT/HCPCS: 96372; 99283